=== PATIENT | male | born 1965 | race Caucasian/White ===

== ENCOUNTER 2024-09-01 14:20 | Emergency (ER) | payer OTHER ==
[~2024-09-01] VITALS: Ht 175.3 cm; Wt 72.6 kg
[2024-09-01 14:20] VITALS: BP 163/79; PULSE 69; RESP 18; TEMP 98.6; O2SAT 96
[2024-09-01 15:30] VITALS: BP 161/73; PULSE 65; RESP 18; TEMP 98.6; O2SAT 96
[2024-09-01] MEDS ORDERED: CEPH500T PO (16:31)
[2024-09-01] MEDS ORDERED: BOOSTRIX IM ONE (16:44)
[2024-09-01] MEDS: BOOSTRIX IM ONE (16:49)
[2024-09-01 16:52] VITALS: BP 156/76; PULSE 63; RESP 18; TEMP 98.6; O2SAT 96
== END 2024-09-01 16:55 | disposition home or self-care (01) ==
LOC: ER 14:20
DX: S61.412A Laceration without foreign body of left hand, initial encounter (principal); I10 Essential (primary) hypertension; F12.90 Cannabis use, unspecified, uncomplicated; Z90.89 Acquired absence of other organs; X58.XXXA Exposure to other specified factors, initial encounter; Y93.89 Activity, other specified; Y92.89 Other specified places as the place of occurrence of the external cause; Y99.0 Civilian activity done for income or pay
CPT/HCPCS: 12002; 90471; 90715; 99283